=== PATIENT | male | born 1995 | race African-American/Black ===

== ENCOUNTER 2018-09-14 15:10 | Emergency (ER) | payer MEDICAID, OTHER ==
[~2018-09-14] VITALS: Ht 175.3 cm; Wt 77.0 kg
[2018-09-14] MEDS ORDERED: MAGNESIUM/ALUMINUM HYDROXIDE/SIMETHICONE 30ML UDC PO STA (16:17)
[2018-09-14] MEDS ORDERED: SODIUM CHLORIDE 0.9% 1,000 ML IV ONE (16:17)
[2018-09-14] MEDS ORDERED: FAMOTIDINE 20MG/2ML VIAL IV STA (16:17)
[2018-09-14] MEDS ORDERED: ONDANSETRON HCL 4MG/2ML INJ IV STA (16:17)
[2018-09-14] MEDS ORDERED: KETOROLAC 30MG/ML VIAL IV STA (16:17)
[2018-09-14 17:06] LABS: HEMATOCRIT. 48.8 % (42.0-52.0); HEMOGLOBIN. 16.5 g/dL (14.0-18.0); MEAN CORPUSCULAR HEMOGLOBIN 29.1 pg (28.0-32.0); MEAN CORPUSCULAR VOLUME 86.2 fL (80.0-94.0); MEAN PLATELET VOLUME 11.2 fl (7.4-10.4); RED BLOOD CELL COUNT 5.66 mill/uL (4.7-6.1); RED CELL DISTRIBUTION WIDTH 12.4 % (11.6-14.6)
[2018-09-14 17:13] LABS: PLATELET 38 x1000/uL (130-400)
[2018-09-14 17:16] LABS: CHLORIDE 103 mEq/L (98-107)
[2018-09-14 17:20] LABS: ETHANOL BLOOD < 10 mg/dL
[2018-09-14 18:52] LABS: PLATELET ESTIMATE MARKEDLY DECREASED
[2018-09-14 19:14] VITALS: BP 138/82
== END 2018-09-14 19:19 | disposition home or self-care (01) ==
LOC: ER 15:10
DX: K29.70 Gastritis, unspecified, without bleeding (principal); K21.9 Gastro-esophageal reflux disease without esophagitis; D69.6 Thrombocytopenia, unspecified
CPT/HCPCS: 36415; 71045; 80053; 80320; 83690; 84484; 85025; 93005; 96361; 96374; 96375; 99284; J1885; J2405; J3490; J7030; G0480